=== PATIENT | male | born 1995 | race Caucasian/White ===

== ENCOUNTER 2018-08-01 09:52 | Emergency (ER) | payer OTHER ==
[~2018-08-01] VITALS: Ht 175.3 cm; Wt 90.7 kg
[~2018-08-01 09:52] MED LIST: BENADRYL25 MG PO; MEDROL8 MG PO; PEPCID40 MG PO; ZOLOFT50 MG
== END 2018-08-01 15:41 | disposition home or self-care (01) ==
LOC: ER 09:52
DX: K52.89 Other specified noninfective gastroenteritis and colitis (principal)